=== PATIENT | male | born 1955 | race Caucasian/White ===

== ENCOUNTER 2023-11-28 05:10 | Inpatient (IN) | payer OTHER ==
[~2023-11-28] VITALS: Ht 182.9 cm; Wt 107.5 kg
[2023-11-28] MEDS ORDERED: ACETAMINOPHEN 500 MG TABLET ONE (05:16)
[2023-11-28] MEDS ORDERED: GABAPENTIN 300 MG CAPSULE ONE (05:16)
[2023-11-28] MEDS: ACETAMINOPHEN 500 MG TABLET PO ONE (05:50)
[2023-11-28] MEDS: GABAPENTIN 300 MG CAPSULE PO ONE (05:50)
[2023-11-28] MEDS ORDERED: LOSA1TAB37 PO (06:28)
[2023-11-28] MEDS ORDERED: LEVO100T9 PO (06:29)
[2023-11-28 06:37] VITALS: PULSE 68; RESP 16; TEMP 98.1; O2SAT 98
[2023-11-28] MEDS ORDERED: GABAPENTIN 300 MG CAPSULE PO ONE (06:45)
[2023-11-28] MEDS ORDERED: ACETAMINOPHEN 500 MG TABLET PO ONE (06:45)
[2023-11-28] MEDS ORDERED: CEFAZOLIN SOD 2 GM in D5W 50 ML IV ONE (06:45)
[2023-11-28] MEDS ORDERED: PROPOFOL DRIP 0 ML IV ONE (07:39)
[2023-11-28] MEDS ORDERED: fentaNYL CITRATE/PF 100 MCG/2 ML AMP ONE (07:39)
[2023-11-28] MEDS ORDERED: MIDAZOLAM HCL 2 MG/2 ML VIAL (VERSED) ONE (07:39)
[2023-11-28] MEDS ORDERED: PROPOFOL DRIP 100 ML IV ONE (09:28)
[2023-11-28] MEDS ORDERED: ONDANSETRON HCL 4 MG/2 ML VIAL IVP PRN (10:00)
[2023-11-28] MEDS ORDERED: fentaNYL CITRATE/PF 100 MCG/2 ML AMP IVP PRN ×2 (10:00)
[2023-11-28] MEDS ORDERED: LR 1,000 ML IV ONE (10:00)
[2023-11-28] MEDS ORDERED: NALOXONE HCL 0.4 MG/ML AMP (NARCAN) IVP PRN (10:00)
[2023-11-28] MEDS: cefTRIAXone 1 GM in D5W 50 ML IV SCH (11:10)
[2023-11-28 11:21] VITALS: BP_SYST 139
[2023-11-28] MEDS ORDERED: HYDROmorphone 1 MG/ML INJ. CARTRIDGE ONE (12:51)
[2023-11-28] MEDS: HYDROmorphone 1 MG/ML INJ. CARTRIDGE IVP PRN (12:55)
== END 2023-11-28 13:30 | disposition home or self-care (01) | DRG 470 ==
LOC: SMU 05:10
PROVIDERS: ADMIT Orthopaedic Surgery Sports Medicine; ATTEND Orthopaedic Surgery Sports Medicine
PROC: 0SRC0JA Replacement of Right Knee Joint with Synthetic Substitute, Uncemented, Open Approach (ICD-10-PCS; principal; 2023-11-28 07:38)
DX: M17.11 Unilateral primary osteoarthritis, right knee (principal)
CPT/HCPCS: 73560; 87081; 88305; 88311; 97110-GP; 97116-GP; 97530-GP; C1713; C1776; J0690; J0696; J1170; J2704; J3010; J3465; J7060